=== PATIENT | female | born 1990 | race Hispanic/Latino ===

== ENCOUNTER 2022-06-27 17:07 | Emergency (ER) | payer OTHER ==
[~2022-06-27] VITALS: Ht 149.9 cm; Wt 49.4 kg
[2022-06-27 17:53] LABS: HCG,QUALITATIVE URINE NEGATIVE (NEGATIVE)
[2022-06-27 17:54] LABS: APPEARANCE,URINE CLEAR (CLEAR); BILIRUBIN,URINE NEGATIVE (NEGATIVE); COLOR,URINE COLORLESS (YELLOW); GLUCOSE, URINE (UA) NEGATIVE (NEGATIVE); KETONES,URINE NEGATIVE (NEGATIVE); LEUKOCYTE ESTERASE ,URINE NEGATIVE Leu/uL (NEGATIVE); NITRATE,URINE NEGATIVE (NEGATIVE); OCCULT BLOOD,URINE NEGATIVE (NEGATIVE); PROTEIN,URINE NEGATIVE (NEGATIVE); UROBILINOGEN,URINE 0.2 mg/dL (0.2-1.0)
[2022-06-27] MEDS ORDERED: IBUP-2070 PO (19:16)
[2022-06-27 19:23] VITALS: BP 127/63
== END 2022-06-27 19:38 | disposition home or self-care (01) ==
LOC: EDH 17:07
DX: R10.2 Pelvic and perineal pain (principal)
CPT/HCPCS: 76856; 81003; 81025